=== PATIENT | female | born 1945 | race African-American/Black ===

== ENCOUNTER 2017-06-01 17:18 | Emergency (ER) | payer MEDICAID ==
[~2017-06-01] VITALS: Ht 152.4 cm; Wt 66.0 kg
[2017-06-01 21:00] VITALS: BP 131/72
== END 2017-06-01 21:50 | disposition home or self-care (01) ==
LOC: ER 18:18
DX: L72.3 Sebaceous cyst (principal); E11.9 Type 2 diabetes mellitus without complications; E78.00 Pure hypercholesterolemia, unspecified
CPT/HCPCS: 99281